=== PATIENT | male | born 1995 | race Caucasian/White ===

== ENCOUNTER 2018-07-04 23:54 | Emergency (ER) | payer BC ==
[~2018-07-04] VITALS: Ht 177.8 cm; Wt 99.8 kg
[2018-07-05 00:50] VITALS: BP_SYST 142
--- NOTE | 2018-07-05 01:30 | NUR ---
Patient has been seen and evaluated by ER Dr Zarco while patient was in triage.
--- NOTE | 2018-07-05 02:00 | NUR ---
Patient to [facility] for evaluation.
--- NOTE | 2018-07-05 02:05 | NUR ---
Patient to ER via triage for evaluation of hitting his head on a wall while in a [employer] earlier this evening. Patient denies LOC, no neck or back pain, patient reports some nausea after hitting his head. Patient is awake, alert and oriented in no acute distress, vital signs stable, respirations even and unlabored, skin warm and dry to touch. Patient able to ambulate to ER Hallway Chair with slow, steady gait. Family at his side. Patient has been seen and evaluated by Dr Zarco while patient was in waiting room, will continue to observe and assess.
[2018-07-05 03:00] VITALS: BP_SYST 130
--- NOTE | 2018-07-05 03:00 | NUR ---
Patient given written and verbal discharge instructions and verbalizes understanding. ER MD discussed with patient the results and treatment provided. Patient in stable condition. ID arm band removed. No RX given. Patient educated on pain management and to follow up with PMD. Pain Scale 0. Opportunity for questions provided and answered. Medication side effect fact sheet provided. Patient left ER in no acute distress, able to ambulate out of ER with slow, steady gait.
== END 2018-07-05 03:00 | disposition home or self-care (01) ==
LOC: SED 23:54
DX: S16.1XXA Strain of muscle, fascia and tendon at neck level, initial encounter (principal); S09.90XA Unspecified injury of head, initial encounter; R03.0 Elevated blood-pressure reading, without diagnosis of hypertension; V86.59XA Driver of other special all-terrain or other off-road motor vehicle injured in nontraffic accident, initial encounter; Y93.89 Activity, other specified; Y92.410 Unspecified street and highway as the place of occurrence of the external cause; Y99.8 Other external cause status
CPT/HCPCS: 70450-TC; 72125-TC; 99284

== ENCOUNTER 2020-08-01 22:11 | Emergency (ER) | payer OTHER, BC ==
[~2020-08-01] VITALS: Ht 177.8 cm; Wt 97.5 kg
[2020-08-01 22:29] VITALS: BP_SYST 162
[2020-08-01 22:41] VITALS: BP_SYST 162
== END 2020-08-02 00:16 | disposition left against medical advice (07) ==
LOC: SED 22:11
DX: M54.5 Low back pain (principal); V43.52XA Car driver injured in collision with other type car in traffic accident, initial encounter; Y93.89 Activity, other specified; Y92.89 Other specified places as the place of occurrence of the external cause; Y99.8 Other external cause status
CPT/HCPCS: 99281